=== PATIENT | female | born 1985 | race Caucasian/White ===

== ENCOUNTER → 2023-07-05 14:45 | Outpatient (BNVA) | payer BC, SELFPAY | PROVIDERS: PCP Pediatrics; Referring Provider Pediatrics; Visit Provider Internal Medicine | DX: R23.2 Flushing (principal); K59.00 Constipation, unspecified | CPT/HCPCS: 36415; 82627; 82670; 83001; 83002; 84305; 84403; 84439 ==

== ENCOUNTER 2023-07-09 11:50 | Outpatient (CLI) | payer BC, SELFPAY ==
[2023-07-09 16:33] LABS: Urine Creatinine 82 mg/dL (28-217)
[2023-07-09 16:35] LABS: Total Volume Urine 1600 ml
[2023-07-17 12:23] LABS: Free Cortisol Urine 15.3 mcg/24 h (4.0-50.0); Total Urine 1600 mL; Urine Creatinine 1.32 g/24 h (0.50-2.15)
== END 2023-07-09 11:51 | disposition home or self-care (01) ==
LOC: LAB 11:53
PROVIDERS: PCP Pediatrics; Visit Provider Internal Medicine
DX: R23.2 Flushing (principal)
CPT/HCPCS: 82530; 82570

== ENCOUNTER 2023-07-27 07:41 | Outpatient (CLI) | payer BC, SELFPAY ==
--- NOTE | 2023-07-27 08:00 | NM_ITS ---
WS: [id number] NUCLEAR MEDICINE GASTRIC STUDY CLINICAL INFORMATION: Hot Flashes, Night Sweats TECHNIQUE: Following oral ingestion of cooked egg mixed with 0.93 mCi technetium 99m sulfur colloi d, anterior images of the stomach were obtained over the course of 90 minutes. Activity curve was per formed over the course of 90 minutes with linear regression analysis. COMPARISON: None. FINDINGS: Oral ingestion of cooked egg technetium 99 M sulfur colloid labeled mixture. T1 half emptying 72.24 minutes 42% emptying at 60 minutes. IMPRESSION: Normal gastric emptying. *Normal median T1 half 90 minutes for solid egg meal (45-110 minutes). Delayed gastric retention is defined as 90% retained at 1 hour, 60% at 2 hours, 30% at 3 hours, and 10% at 4 hours (normal percent gastric retention is 37-90% at 1 hour, 30-60% at 2 hours, and 0-10% a t 4 hours).
== END 2023-07-27 07:42 | disposition home or self-care (01) ==
LOC: RAD 07:42
PROVIDERS: PCP Pediatrics; Visit Provider Internal Medicine
DX: R23.2 Flushing (principal); R61 Generalized hyperhidrosis
CPT/HCPCS: 78264; A9541